=== PATIENT | female | born 1995 ===

== ENCOUNTER 2023-06-18 18:59 | Outpatient (REF) | payer BC, SELFPAY ==
[2023-06-18 19:53] LABS: ALT 78 U/L (14-59); AST 51 U/L (15-37); Albumin 4.5 g/dL (3.4-5.0); Alkaline Phosphatase 64 U/L (46-116); BUN 9 mg/dL (7-18); Bilirubin, Total 0.6 mg/dL (0.2-1.0); CREATININE 0.8 mg/dL (0.55-1.02); Calcium 9.9 mg/dL (8.5-10.1); Chloride 101 mmol/L (98-107); Estimated GFR 104.15 (mL/min/1.73m2); Glucose 85 mg/dL (74-106); Potassium 3.7 mmol/L (3.5-5.1); Sodium 140 mmol/L (136-145); Total Protein 8.5 g/dL (6.4-8.2)
[2023-06-18 20:27] LABS: Calculated LDL 191 mg/dL (<100); Cholesterol 297 mg/dL (<200); HDL Cholesterol 56 mg/dL (40-60); Triglyceride 254 mg/dL (<150)
== END 2023-06-18 19:00 | disposition home or self-care (01) ==
LOC: NCHCN 18:59
PROVIDERS: Visit Provider Nurse Practitioner Family
DX: E03.9 Hypothyroidism, unspecified (principal); E78.5 Hyperlipidemia, unspecified
CPT/HCPCS: 80053; 80061; 84443

== ENCOUNTER 2024-06-22 08:53 | Outpatient (REF) | payer BC, SELFPAY ==
[2024-06-22 20:10] LABS: ALT 30 U/L (14-59); AST 16 U/L (15-37); Albumin 4.2 g/dL (3.4-5.0); Alkaline Phosphatase 63 U/L (46-116); Anion Gap 7.6 mmol/L (3-11); BUN 12 mg/dL (7-18); Bilirubin, Total 0.63 mg/dL (0.2-1.0); CO2 31.4 mmol/L (21.0-32.0); CREATININE 0.9 mg/dL (0.55-1.02); Calcium 9.7 mg/dL (8.5-10.1); Calculated LDL 167 mg/dL (<100); Chloride 100 mmol/L (98-107); Cholesterol 276 mg/dL (<200); Estimated GFR 89.86 (mL/min/1.73m2); Glucose 98 mg/dL (74-106); HDL Cholesterol 48 mg/dL (40-60); Potassium 4.4 mmol/L (3.5-5.1); Sodium 139 mmol/L (136-145); TSH 2.24 uIU/Ml (0.36-3.74); Total Protein 8.1 g/dL (6.4-8.2); Triglyceride 305 mg/dL (<150)
== END 2024-06-22 08:54 | disposition home or self-care (01) ==
LOC: NCHCN 08:53
PROVIDERS: Visit Provider Nurse Practitioner Family
DX: E03.9 Hypothyroidism, unspecified (principal); E78.5 Hyperlipidemia, unspecified
CPT/HCPCS: 80053; 80061; 84443

== ENCOUNTER 2025-06-27 15:22 | Outpatient (REF) | payer BC, SELFPAY ==
--- NOTE | 2025-06-27 10:10 | PAPFT_PTH ---
PATIENT: Heidi Dsouza LOC: [facility] U#:[id number] AGE/SX: 30/F ROOM: RE06/27/[address]: Lizzeth Gomes : 1995 BED: DIS: 06/27/2025 SPEC #: [id number] RECD: 06/27/25 18:17 STATUS: DONTRELL REQ #: [id number] TIA: 06/27/25 10:[address] Cytology RECD BY: Polina Ricks ENTERED: 06/27/25 18:17 SP TYPE: PAPFT SRIDHAR DR: Unknown,Unknown Tissues: 1 - CX/ENDOCX FOR PAP SMEARS Procedures: PAP THIN PREP/[facility] Screening Comments: [id number]
[2025-06-27 19:38] LABS: ALT 26 U/L (14-59); AST 16 U/L (15-37); Albumin 4.2 g/dL (3.4-5.0); Alkaline Phosphatase 53 U/L (46-116); Anion Gap 8.1 mmol/L (3-11); BUN 10 mg/dL (7-18); Bilirubin, Total 0.6 mg/dL (0.2-1.0); CO2 29.9 mmol/L (21.0-32.0); Calcium 9.2 mg/dL (8.5-10.1); Calculated LDL 151 mg/dL (<100); Chloride 102 mmol/L (98-107); Cholesterol 244 mg/dL (<200); Estimated GFR 102.86 (mL/min/1.73m2); Glucose 95 mg/dL (74-106); HDL Cholesterol 44 mg/dL (>or=50); Potassium 4.1 mmol/L (3.5-5.1); Sodium 140 mmol/L (136-145); TSH 0.79 uIU/mL (0.36-3.74); Total Protein 7.7 g/dL (6.4-8.2); Triglyceride 246 mg/dL (<150)
== END 2025-06-27 15:23 | disposition home or self-care (01) ==
LOC: NCHCN 15:22
PROVIDERS: Visit Provider Nurse Practitioner Family
DX: Z12.4 Encounter for screening for malignant neoplasm of cervix (principal)
CPT/HCPCS: 80053; 80061; 88142; 84443